=== PATIENT | female | born 1970 | race Caucasian/White ===

== ENCOUNTER 2025-01-31 19:49 | Emergency (ER) | payer OTHER, SELFPAY ==
--- NOTE | ~2025-01-31 | XR_ITS ---
X-rays right ankle Indication: Twisted ankle, pain Comparison: None Technique: 4 views right ankle Findings/Impression: 1. No fracture or dislocation right ankle. Reviewed, dictated and finalized at location R.
--- NOTE | 2025-01-31 19:54 | ED.LOWEXIN ---
HPI - Extremity Injury (Lower) General Chief Complaint: Extremity Injury, Lower Stated Complaint: foot pain Time Seen by Provider: 01/31/25 19:53 Source: patient Mode of arrival: ambulatory Limitations: no limitations History of Present Illness HPI Narrative: Patient is a 55-year-old female with a right ankle injury after raking hay this evening. Patient has pain on the lateral aspect of the right ankle. MD complaint: ankle injury (Right) Onset (ago): minute(s) (30) Type of Injury: inversion Place: home and street/outdoors Severity: moderate Severity scale (1-10): 6 Relieving factors: cold therapy and immobilization Exacerbating factors: weight bearing, movement and palpation Context: other (Patient was raking hay and twisted her right ankle) Associated symptoms: swelling, tingling and able to partially bear weight Other symptoms: none Treatments prior to arrival: cold therapy Related Data Allergies Allergy/AdvReac Type Severity Reaction Status Date / Time No Known Allergies Allergy Verified 01/31/25 19:53 Review of Systems Review of Systems: All systems reviewed & are unremarkable except as noted in HPI and below Constitutional: Constitutional: Reports no additional constitutional complaints Eyes: Eyes: Reports no additional eye complaints ENT: Reports system reviewed and no additional complaints, except as documented Cardiovascular: Cardiovascular: Reports no additional cardiovascular complaints Respiratory: Respiratory: Reports no additional respiratory complaints Gastrointestinal: Gastrointestinal: Reports no additional gastrointestinal complaints Genitourinary: Genitourinary: Reports no additional female genitourinary complaints Musculoskeletal: Musculoskeletal: Reports no additional musculoskeletal complaints Integumentary/Breasts: Skin/Breast: Reports system reviewed and no additional complaints, except as docu Neurologic: Reports system reviewed and no additional complaints, except as documented Psychiatric: Psychiatric: Reports no additional psychiatric complaints Endocrine: Endocrine: Reports no additional endocrine complaints Hematologic/Lymphatic: Hematologic/Lymphatic: Reports no additional hematologic/lymphatic complaints Allergic/Immunologic: Allergic/Immunologic: Reports no additional allergic/immunologic complaints Exam Const: General: healthy appearing Nutritional Appearance: well nourished Orientation/consciousness: patient oriented x3 HENMT: Head: normal to inspection Ears: external ears normal Face/Nose/Sinus: Normal external nose present Eyes: Conjunctivae: conjunctivae normal Pupils: Equal, round and reactive pupils present EOM: EOMs intact bilaterally Neck: Neck: normal visual inspection Chest: Chest palpation & inspection: normal inspection of the chest Resp: Effort & Inspection: normal respiratory effort and not labored Auscultation: clear to auscultation bilaterally and no crackles Cardio: Rate: regular rate Rhythm: regular rhythm Heart sounds: no murmurs GI: Inspection: non-distended GI Palp: Yes Soft to palpation and No Tenderness to palpation present (GI) Auscultation: normal bowel sounds : General: Yes bladder normal to palpation Back/Spine/Pelvis: Back: no CVA tenderness Skin: General skin exam: normal color Rashes: no rashes Wounds: no wounds Neuro: General: patient oriented x3, moves all extremities and no meningeal signs Extrem: General: abnormal to inspection Other: Swollen right ankle lateral aspect with tenderness to palpation and movement; distally neurovascularly intact Psych: Mental Status: mental status grossly normal Affect: normal affect Attitude: cooperative Course Vital Signs Vital signs: Vital Signs Temperature 36.8 C 01/31/25 19:56 Pulse Rate 100 01/31/25 19:56 Respiratory Rate 22 H 01/31/25 19:56 Blood Pressure 141/83 H 01/31/25 19:56 Pulse Oximetry 100 01/31/25 19:56 Oxygen Delivery Room Air 01/31/25 19:56 Temperature 36.8 C 01/31/25 19:56 Pulse Rate 100 01/31/25 19:56 Respiratory Rate 22 H 01/31/25 19:56 Blood Pressure 141/83 H 01/31/25 19:56 Pulse Oximetry 100 01/31/25 19:56 Oxygen Delivery Room Air 01/31/25 19:56 MDM - Extremity Injury (Lower) MDM Narrative Medical decision making narrative: Patient is a 55-year-old female with a right ankle injury prior to arrival. X-ray. Pain control. Imaging Data Attestation: I personally reviewed and interpreted this imaging study as follows: Radiologist's impression: Right ankle x-ray shows no acute process pending final reading Discharge Plan Discharge Clinical Impression: Right ankle sprain Qualifiers: Encounter type: initial encounter Involved ligament of ankle: other ligament Qualified Code(s): S93.491A - Sprain of other ligament of right ankle, initial encounter Patient Disposition: Home Condition: Stable Instructions: Ankle Sprain (DC) Patient Language: Puerto Rican Follow-up/Referrals: UNKNOWN,DOCTOR [Non-Staff] Time of Disposition: 20:07
--- OUTSIDE RECORDS SUMMARY | 2025-01-31 19:55 | XMS_ITS | Clinical Summary ---
Author Organization [facility] Address [address] [place] [address] Care Team Providers Care Supervisor Bonding Name Role Phone Jose Estevez MD Primary Care Provider Source Comments [facility],non-owned Affiliates and Associated Physician Practices is amultiple site organization consisting of ambulatory clinics and hospital sitesin [place], [place], [place] and [place]. This disclosure is being madepursuant to the Care Everywhere program and may not contain all information available regarding this patient. Last updated 18.[facility] Allergies Active Allergy Reactions Criticality Noted Date Comments Contrast-Gadolinium Agents For Mri Anaphylaxis High 03/22/2018 PT STATES THAT SHE HAD TO BE RUSHED TO THE EMERGENCY ROOM HER AIRWAY CLOSED OFF Medications * Be aware that medications may not be up to date on this document. Alwaysverify current medications with the patient. traZODone (DESYREL) 50 MG tablet Take 1 tablet by mouth nightly as needed 02/26/2018 Active ibuprofen (ADVIL) 200 MG tablet Take 200 mg by mouth every 6 hours as needed for Pain Active naproxen sodium (ALEVE) 220 MG tablet Take 220 mg by mouth 2 times daily Active Family History Medical History Relation Name Comments Diabetes - Type 2 Father Other Mother DYSTONIA Relation Name Status Comments Father Mother Social History Tobacco Use Types Packs/Day Years Used Date Smoking Tobacco: Never Smokeless Tobacco: Never Alcohol Use Standard Drinks/Week Comments No 0 (1 standard drink = 0.6 oz pur e alcohol) Comments Unknown Sex and Gender Information Value Date Recorded Sex Assigned at Not on file Legal Sex Female 6:14 AM [employer] Gender Identity Not on file Sexual Orientation Not on file Last Filed Vital Signs Vital Sign Reading Time Taken Comments Blood Pressure 129/82 05/22/2018 11:28 AM [employer] Pulse 76 05/22/2018 11:28 AM [employer] Temperature 36.4 C (97.6 F) 05/22/2018 11:28 AM [employer] Respiratory Rate 18 05/22/2018 11:28 AM [employer] Oxygen Saturation 100% 05/22/2018 11:28 AM [employer] Inhaled Oxygen Concentration - - Weight - - Height - - Body Mass Index - - Plan of Treatment Health Maintenance Due Date Last Done Comments COLOGUARD (AGES 45-75) - COL ON CA SCREENING 1969 COLON MONITORING 1969 COLONOSCOPY - COLON CA SCREENING 1969 CT COLONOGRAPHY - COLON CA SCREENING 1969 Colorectal Cancer Screening 1969 FIT - COLON CA SCREENING 1969 FLEX SIG - COLON CA SCREENING 1969 LIPID TESTING 1969 MAMMOGRAM 1969 HIV SCREENING 01/09/1984 HEPATITIS C SCREENING 01/04/1987 DTAP/TDAP/TD VACCINES (1 - Tdap) 01/09/1988 HEPATITIS B VACCINE (1 of 3 - 19+ 3-dose series) 01/09/1988 PNEUMOCOCCAL VACCINE 50+ (1 of 1 - PCV) 2019 ZOSTER VACCINE (1 of 2) 2019 DEPRESSION SCREENING 05/13/2024 COVID-19 VACCINE (1 - 2023-2 5 season) 2025 INFLUENZA VACCINE (#1) 2025 HIB VACCINE Aged Out No longer eligi ble based on patient's age to complete this topic HPV VACCINE Aged Out No longer eligi ble based on patient's age to complete this topic MENINGOCOCCAL (Group B) VACC INE SHARED DECISION-MAKING Aged Out No longer eligibl e based on patient's age to complete this topic MENINGOCOCCAL GROUPS A/C/Y/W VACCINE Aged Out No longer eligible b ased on patient's age to complete this topic Insurance [employer] Care Teams Supervisor Bonding Relationship Specialty Start Date End Date Jose Estevez MD PCP - General Internal Medicine 04/24/18
--- OUTSIDE RECORDS SUMMARY | 2025-01-31 19:55 | XMS_ITS | Clinical Summary ---
Author Organization [facility] Address [address] [place] [address] Care Team Providers Care Pin Machine Tender Name Role Phone Vickie Mendoza MD Unavailable John Arellano MD Unavailable [phone] Jose Vazquez MD Primary Care Provider [phone] Allergies Active Allergy Reactions Criticality Noted Date Comments Gadolinium-Containing Contrast Media Anaphylaxis High 03/27/2018 Medications multivitamin with minerals tablet Take 1 tablet by mouth daily Active traMADoL (ULTRAM) 50 mg tablet Take 1 tablet (50 mg total) by mouth every 8 (eight) hours as needed for pain 30 tablet 06/30/2024 Active gabapentin (NEURONTIN) 600 mg tabletIndicatio ns:Neuropathic Pain Take 1 tablet (600 mg total) by mouth 3 (three) times a day 90 tablet 5 08/24/2024 5 Active sertraline (ZOLOFT) 50 mg tabletIndicatio ns:Moderate recurrent major depression (HCC) Take 1 tablet (50 mg total) by mouth daily 30 tablet 5 12/23/2024 6 Active traZODone (DESYREL) 100 mg tablet Take 1 tablet (100 mg total) by mouth nightly as needed for sleep 100 tablet 12/23/2024 6 Active Active Problems Problem Noted Date Diagnosed Date Anxiety 06/23/2024 Bilateral hip pain 09/03/2023 Overview (12/01/2023): XR 08/2023 IMPRESSION: Mild bilateral hip osteoarthritis. Assessment & Plan (12/02/2023 1:02 PM CDT): Reviewed XR. Relatively mild changes noted. Consider IASI if LESI does not help. Assessment & Plan (09/03/2023 11:42 AM CDT): Bilatearl hip imaging ordered Cervical spondylosis with radiculopathy 04/08/20 Overview (04/08/2023): Cs MRI 04/2022 FINDINGS: CERVICAL AND THORACIC SPINE: No definite lesions within the cervical or thoracic cord The alignment of the cervical and thoracic spine is normal. Vertebral bodies demonstrate normal signal intensity on all sequences. The craniocervical junction is normal. Multilevel degenerative disc disease is noted. Posterior disc osteophyte complexes at C5-C6 and C6-C7 and disc bulges at T6-T7, T7-T8, T8-T9, and T12-L1 results in mild to moderate spinal canal stenosis. There is right renal cyst partly seen.. Normal signal voids are present in the vertebral arteries. IMPRESSION: No brain demyelinating cord lesions identified. Assessment & Plan (12/02/2023 1:05 PM CDT): Consider MARTÍN in the future for her RUE radicular sx. Notes 50/50 pain Cs vs Ls but wants to start in Ls given lower risk. Assessment & Plan (09/03/2023 11:42 AM CDT): Continue gabapentin. Declines interventional options at this time. Does not feel gabapentin needs to be increased. Assessment & Plan (06/10/2023 10:54 AM SOLAR SYSTEM DESIGNER): Increase gabapentin. Consider ALAN C7-T1 - declines at this time. Assessment & Plan (04/08/2023 1:25 PM SOLAR SYSTEM DESIGNER): Will trial PT and gabapentin titration. Discussed ALAN as well briefly. Reviewed prior MRI. Spinal stenosis of lumbar region with radiculopa thy 02/06/2023 Overview (03/16/2024): LESI L4-5 12/17/23 - Ls MRI 02/2023 FINDINGS: The alignment of the lumbar spine is normal. There is heterogeneous bone marrow signal intensity throughout the lumbar spine with a predominantly fatty pattern superimposed on otherwise normal-appearing bone marrow. There is degenerative endplate signal changes best seen as edema-like changes in the superior endplate of the L5 vertebral body. There are no compression fractures. The conus medullaris terminates at the level of L1-L2. The distal spinal cord signal intensity is normal. There is diffuse disc desiccation. There is disc height loss at L4-L5. There is an annular fissure at L4-L5. There is a renal cortical cyst in the right kidney. The remaining soft tissues of the abdomen and pelvis appear appropriate. The aorta is normal. L1-L2: Minimal disc bulge. There is no facet arthropathy. There is no neuroforaminal stenosis. There is no spinal canal stenosis. L2-L3: Minimal disc bulge. There is mild bilateral facet arthropathy. There is mild left neuroforaminal stenosis. There is no spinal canal stenosis L3-L4: Mild disc bulge. There is mild right greater than left facet arthropathy. There is mild bilateral neuroforaminal stenosis. There is no spinal canal stenosis L4-L5: Disc bulge with superimposed central disc extrusion which migrates cranially behind the L4 endplate. There is moderate bilateral facet arthropathy. There is moderate to severe right and moderate left neuroforaminal stenosis. There is mild spinal canal stenosis L5-S1: The disc is normal in configuration. There is no facet arthropathy. There is no neuroforaminal stenosis. There is no spinal canal stenosis IMPRESSION: Mild to moderate degenerative changes of the lumbar spine as described in detail above. This is worst at L4-L5 where there is moderate to severe right and moderate left foraminal stenosis. There is also mild spinal canal stenosis. Assessment & Plan (12/02/2023 11:23 AM CDT): Plan for LESI L4-5 in 2 weeks Assessment & Plan (09/10/2023 7:49 AM CDT): MRI LS spine 02/24/23: Moderate L4-5 central canal stenosis with moderate to severe bilateral neural foraminal stenosis. Current pain radiating down right buttock and right lateral thigh Recommended proceeding with lumbar steroid injections. Increase gabapentin to 600 mg 3 times a day If lumbar steroid injections ineffective, neurosurgical consultation recommended. Physical therapy not helpful. Assessment & Plan (02/07/2023 7:40 AM CDT): Low back pain radiating down her left buttock, left lateral leg to the ankle since October 2022. Physical therapy initiation MRI lumbosacral spine without contrast. Likely pain management referral after MRI performed. Lumbar steroid injections discussed. Superficial thrombophlebitis of left upper extre mity 10/21/2022 Assessment & Plan (10/31/2022 4:16 PM CDT): Continue Eliquis for 6 weeks at which time she can be switched to aspirin therapy Assessment & Plan (10/22/2022 4:45 PM CDT): eliquis started Vaginal spotting 10/21/2022 Assessment & Plan (10/22/2022 4:46 PM CDT): Note from Senior Games Technician appreciated Left arm pain 10/20/2022 Assessment & Plan (10/22/2022 4:44 PM CDT): Hepain stopped and eliquis started SBO (small bowel obstruction) 10/16/2022 Assessment & Plan (10/31/2022 4:17 PM CDT): Bowel obstruction has resolved. Patient reports that she is still having some lower abdominal pain but it is much better. Assessment & Plan (10/21/2022 10:40 AM CDT): Will go ahead and advance diet as tolerated. BMI 24.0-24.9, adult 10/01/2022 Assessment & Plan (08/18/2024 10:09 AM CDT): BMI Follow-up includes: nutrition counseling, exercise counseling, and education provided. Assessment & Plan (06/23/2024 2:26 PM SOLAR SYSTEM DESIGNER): BMI Follow-up includes: nutrition counseling, exercise counseling, and education provided. Assessment & Plan (10/01/2022 1:44 PM CDT): BMI Follow-up includes: nutrition counseling, exercise counseling and education provided. Moderate recurrent major depression 08/03/2022 Assessment & Plan (10/31/2022 4:17 PM CDT): We have discussed the fact that stress may indeed be playing a role in some of her symptoms which she is agreeing to. She recognizes that both with her aging parents as well as her own health issues stress levels are at all time high. Assessment & Plan (10/16/2022 5:19 PM CDT): Patient is on trazodone at bedtime. She was on duloxetine but stopped it because it was making her too sedate. Assessment & Plan (10/01/2022 2:14 PM CDT): Patient is going to be started on Cymbalta titrating to 60 mg nightly. Assessment & Plan (08/03/2022 6:45 AM CDT): Cymbalta 30 mg at night for 1 week then 60 mg at night. Risks discussed including nausea and drowsiness. Sore throat 08/02/2022 Assessment & Plan (08/02/2022 4:32 PM CDT): Rapid strep was negative a throat culture was sent to the lab Chest pain 08/02/2022 Assessment & Plan (08/02/2022 4:32 PM CDT): Pleurodynia most likely. This does not appear cardiac. Pleuritic chest pain 08/02/2022 Assessment & Plan (10/24/2022 2:30 PM CDT): At this time the patient was sent to the emergency room for further evaluation. I have spoken with the nurse in triage. Patient needs a stat CT scan of the chest with PE protocol. Assessment & Plan (08/02/2022 4:32 PM CDT): Patient will be placed on diclofenac for 1 week and will see if her symptoms improved. White matter disease 04/28/2022 Assessment & Plan (09/10/2023 7:46 AM CDT): Approximally for small/tiny scattered nonspecific white matter lesions. MRI brain February 2023 unchanged with no convincing central vein sign. MRI cervical/thoracic spinal cord normal 05/01/22 CSF normal including 0 oligoclonal bands 05/10/22 Extensive serologies normal Assessment & Plan (02/07/2023 7:39 AM CDT): MRI brain 02/15/22: Approximally 6 small/tiny nonspecific white matter lesions which are possibly related to demyelination. MRI cervical/thoracic spinal cord normal 05/01/22 CSF normal including 0 oligoclonal bands 05/10/22 Extensive serologies normal Repeat MRI scan of the brain with central vein sign protocol to assess for demyelination. Assessment & Plan (08/03/2022 6:54 AM CDT): MRI brain 02/15/22: Approximally 6 small/tiny nonspecific white matter lesions which are possibly related to demyelination. MRI cervical/thoracic spinal cord normal 05/01/22 CSF normal including 0 oligoclonal bands 05/10/22 Extensive serologies normal Repeat MRI scan of the brain when central vein sign available if available prior to February 2022. If not available, will proceed with MRI scan of the brain with contrast February 2022. Central vein sign discussed as a future option to assess for demyelination. Non-recurrent acute suppurative otitis media of left ear 03/26/2022 Assessment & Plan (03/26/2022 2:08 PM SOLAR SYSTEM DESIGNER): At this time the patient is going to be placed on Flonase Claritin D and Ceftin. Prescriptions have been sent to her pharmacy. She will also use Debrox or Cerumenex to remove the wax. Chronic cough 01/31/2022 Paresthesias 01/31/2022 Assessment & Plan (01/31/2022 5:07 PM CDT): Patient has burning paresthesias that occur in both upper and lower extremities. They last for several days to weeks. They are never completely gone. This is gotten progressively worse over the last 6 months. She also notes difficulty walking raising concerns over possible multiple sclerosis. Syncope 06/05/2021 Assessment & Plan (06/05/2021 5:42 PM SOLAR SYSTEM DESIGNER): Patient had onset of vertigo while driving. She walked in to [employer] and passed out losing consciousness. When she originally woke up she was somewhat dazed. It took a while to get back to normal. Left cavernous carotid aneurysm 06/05/2021 Assessment & Plan (06/05/2021 5:43 PM SOLAR SYSTEM DESIGNER): Patient had a questionable cavernous carotid aneurysm. At this time because of a dye allergy to gadolinium a CT angiogram will be obtained. It is possible that this was artifact. Screening breast examination 10/17/2019 Assessment & Plan (10/17/2019 11:59 AM CDT): A mammogram was ordered Routine general medical exam ination at a [facility] facility 10/14/2019 Assessment & Plan (11/23/2020 11:24 AM CDT): Comprehensive laboratory studies will be obtained. The patient was instructed to follow a prudent diet and exercise program. We have reviewed all medications and where appropriate 90 day refills were given. A heart healthy diet was provided. Assessment & Plan (10/17/2019 11:59 AM CDT): Comprehensive laboratory studies will be obtained. The patient was instructed to follow a prudent diet and exercise program. We have reviewed all medications and where appropriate 90 day refills were given. A heart healthy diet was provided. Bilateral leg edema 10/14/2019 Assessment & Plan (10/17/2019 11:59 AM CDT): A urinalysis will be obtained to rule out proteinuria Bilateral plantar fasciitis 06/09/2019 Assessment & Plan (06/09/2019 1:22 PM SOLAR SYSTEM DESIGNER): Patient given a handout on plantar fasciitis. She should obtain heel cups. She should wear appropriate footwear. She may ice the bottoms of her feet. Stretching exercises given to patient. She may use Celebrex 200 mg daily with food for 2 weeks only. If no improvement she should either see podiatry Orthopedics for an injection. Patient verbalizes understanding. Facial pain, acute 12/16/2018 Assessment & Plan (12/16/2018 3:26 PM CDT): Resolved. May have been muscle sprain or spasm. She does appear to have eustachian tube dysfunction. Warm moist heat to face t.i.d. today. Kidney stone on right side 10/21/2018 Overview (10/21/2018): Added automatically from request for surgery [id number] Anastomotic ulcer 08/12/2018 Assessment & Plan (08/13/2018 9:32 AM CDT): Flex sig yesterday shows non bleeding ulcer at the anastomotic ilio-sigmoid site. GI following recommends daily Canasa enema Likely cost prohibitive will check Assessment & Plan (08/12/2018 9:18 AM CDT): Flex sig yesterday shows non bleeding ulcer at the anastomotic ilio-sigmoid site. GI following recommends daily Canasa enema Right lower quadrant abdominal pain 08/06/2018 Overview (08/11/2018): Added automatically from request for surgery [id number] Assessment & Plan (08/15/2018 3:56 PM CDT): RLQ pain sudden onset and complete eval at [facility] I have reviewed all. Today c d still operator RLQ but no eritoneal signs and bs normal. She is able to tolerate reg diet. Long discussion and review of labs,xrays and notes. Will continue pain meds and return in 4 days to reeval. Allergy to intravenous contrast media 03/21/2018 Diarrhea 11/18/2017 Assessment & Plan (10/22/2022 4:44 PM CDT): No further issue with diarrhea. Has not had BM for 3 days Onychomycosis 07/01/2017 Assessment & Plan (08/09/2018 12:31 PM CDT): Hold itraconazole Assessment & Plan (08/08/2018 10:43 AM CDT): Hold itraconazole Assessment & Plan (08/07/2018 3:54 AM CDT): Hold itraconazole Assessment & Plan (07/01/2017 12:55 PM SOLAR SYSTEM DESIGNER): rx meds sent to pharmacy education risk benefits side affect and time Encourage to get rid of shoes do not use shoes without socks Soak in epsom salt and warm water two times a week Primary insomnia 05/29/2017 Assessment & Plan (09/10/2023 7:50 AM CDT): Partially related to lumbosacral radiculopathy pain. Trazodone 100 mg at night. Assessment & Plan (02/07/2023 7:54 AM CDT): Trazodone 100 mg as needed Temazepam equally effective Assessment & Plan (08/03/2022 6:44 AM CDT): Trazodone 100 mg helps her fall asleep, but not stay asleep. Sleeping 3-4 hours at night. Temazepam 15-30 mg at night initiation. Assessment & Plan (06/02/2017 3:09 PM SOLAR SYSTEM DESIGNER): rx given Psoriasis 03/30/2014 Overview (08/17/2016): Psoriasis Assessment & Plan (09/10/2017 4:04 PM CDT): See # 1 Calculus of kidney and ureter 03/30/2014 Overview (08/17/2016): Renal and ureteral stones Mass of breast 05/20/2013 Vitamin D deficiency 08/07/2012 Overview (08/15/2016): Unspecified vitamin D deficiency Assessment & Plan (10/17/2019 12:00 PM CDT): A vitamin-D level will be obtained. Patient will continue supplementing Open wound of toe 08/07/2012 Overview (08/16/2016): Open wound of toe(s), without mention of complicat Abdominal pain 04/23/2012 Overview (08/08/2018): Assessment & Plan (06/05/2021 5:43 PM SOLAR SYSTEM DESIGNER): Patient has had recurrent abdominal pain. She has been evaluated by GI. At this time laboratory studies including an amylase and lipase will be obtained. Assessment & Plan (08/19/2018 4:00 PM CDT): Improved but still very tender RLQ and moves as if pain increases with jarring and motion. No fever, no vomiting and moving bowels and eating ok. PE c d still operator but no peritoneal signs. Continue waitng for better. Consider Dr Paula Mendoza consult--?autoimmune? 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 CRS and GI following. No new recs. 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 CRS and GI following. No new recs. No abx as no evidence of infection Continue with pain control, add gabapentin Continue scheduled NSAIDS and oral oxycodone Wean from IV dilaudid Monitor for signs of infection of abscess Assessment & Plan (08/11/2018 10:56 AM CDT): Etiology remains unclear but Non-contrast CT scan and transvaginal US unremarkable. Non-obstructing right kidney stone seen in lower pole of kidney, felt unlikely to be the cause of her pain and unchanged in position on repeat KUB Flex sig shows anastomotic non bleeding ulcer with mild stenosis May consider contrasted CT scan to better delineate location of pain Transition pain meds to oral and dose reduce IV dilaudid Assessment & Plan (08/10/2018 12:27 PM CDT): Etiology remains unclear but some improvement today Non-contrast CT scan and transvaginal US unremarkable. Non-obstructing right kidney stone seen in lower pole of kidney, felt unlikely to be the cause of her pain and unchanged in position on repeat KUB Appreciate surgery recs and GI recs, per surgery some e/o omental inflammation on CT and recommended Toradol Discussed with GI fellow today, plan for flex sig in the am, NPO after midnight and tap water enemas ordered Cont IV Dilaudid prn for pain and IVF. Clear liquid diet then NPO after midnight Assessment & Plan (08/09/2018 12:31 PM CDT): Etiology remains unclear with no improvement today Non-contrast CT scan and transvaginal US unremarkable. Non-obstructing right kidney stone seen in lower pole of kidney, felt unlikely to be the cause of her pain and unchanged in position on repeat KUB Appreciate surgery recs, no e/o obstruction on imaging thus far recommend lower endoscopy or Hypaque enema Repeat enema today, plan for lower endoscopy Saturday per GI Cont IV Dilaudid prn for pain and IVF. Clear liquid diet. Assessment & Plan (08/08/2018 10:42 AM CDT): Etiology remains unclear No fever. Some stool output with mag citrate but pain remains CT scan and transvaginal US unremarkable. GI consulted still with concern pain may be related to right renal stone given now with flank pain component Will continue with bowel regimen and add enema for evacuation Abdominal US to evaluate gll bladder stone but no other evidence of obtstruction with normal LFT Obs series to evaluate for renal stone changes and bowel dilation GI following, if all other work up remains unremarkable will consider C scope Assessment & Plan (08/07/2018 3:54 AM CDT): Non contrast CT noted nonobstructive right renal stone. Urology consulted in ED and did not feel this was cause of pain. No other clear cause of pain identified. Pelvic ultrasound also reportedly without acute abnormalities. Has history of similar presentations and chart history of chronic abdominal and pelvic pain. Differential includes IBS, medication side effect (itraconazole), functional abdominal pain. Hold itraconazole Pain control as needed. Will give one dose 0.5 mg IV dilaudid now, and order IV toradol prn Labs consistent with starvation ketosis. Will give D5 NS at 125 for 1 liter. Clear liquid diet and advance as tolerated Consider GI consult Drug indicated 01/31/2012 Overview (08/17/2016): LONG-TERM USE MEDS NEC Multiple joint pain 10/24/2011 Overview (08/17/2016): Joint pain Assessment & Plan (09/06/2018 3:55 PM CDT): Since this flare-up the patient has had multiple joint complaints. At this time she is avoiding all nonsteroidal anti-inflammatories. She will use of oxycodone and Tylenol as needed. Assessment & Plan (09/10/2017 4:04 PM CDT): Discussed results of recent work up w/ patient. Serologies were negative for evidence of autoimmune disease and/or inflammatory process. Her xrays revealed no erosive changes. She denies pain and/or morning stiffness in her joints. She continues to have fatigue and myalgias. She has a pruritic patch along her posterior hairline, highly suspicious for psoriasis. No evidence of synovitis on exam. Given clinical and diagnostic picture, suspect seronegative Spa vs. RA. Will continue to monitor every 6 mo, sooner if needed. Gave her samples of Vivlodex 10 mg. She will call us if she would like us to send in a rx to the speciality pharmacy. Pt seen w/ Dr. Mendoaz Assessment & Plan (08/22/2017 2:23 PM CDT): 47 yof w/ complaints of myalgias, joint pain, back pain, fatigue, and trouble sleeping. She also admits to shortness of breath and pain/stiffness in her hands. She also has multiple hypopigmented spots throughout upper arms and neckline. Will evaluate for underling autoimmune process w/ blood work (AVISE) and xrays She will follow up in 2 weeks, sooner if needed. Pt seen w/ Nancy Calderon PA-C Varicose veins of lower extremity 08/16/2011 Overview (08/17/2016): Varicose vein of leg Disorder of joint 08/25/2009 Overview (08/16/2016): ARTHROPATHY NOS-UNSPEC Resolved Problems Problem Noted Date Diagnosed Date Resolved Date Lumbar disc disease with radiculopathy 04/08/2023 09/10/2023 Overview (04/08/2023): Ls MRI 02/2023 FINDINGS: The alignment of the lumbar spine is normal. There is heterogeneous bone marrow signal intensity throughout the lumbar spine with a predominantly fatty pattern superimposed on otherwise normal-appearing bone marrow. There is degenerative endplate signal changes best seen as edema-like changes in the superior endplate of the L5 vertebral body. There are no compression fractures. The conus medullaris terminates at the level of L1-L2. The distal spinal cord signal intensity is normal. There is diffuse disc desiccation. There is disc height loss at L4-L5. There is an annular fissure at L4-L5. There is a renal cortical cyst in the right kidney. The remaining soft tissues of the abdomen and pelvis appear appropriate. The aorta is normal. L1-L2: Minimal disc bulge. There is no facet arthropathy. There is no neuroforaminal stenosis. There is no spinal canal stenosis. L2-L3: Minimal disc bulge. There is mild bilateral facet arthropathy. There is mild left neuroforaminal stenosis. There is no spinal canal stenosis L3-L4: Mild disc bulge. There is mild right greater than left facet arthropathy. There is mild bilateral neuroforaminal stenosis. There is no spinal canal stenosis L4-L5: Disc bulge with superimposed central disc extrusion which migrates cranially behind the L4 endplate. There is moderate bilateral facet arthropathy. There is moderate to severe right and moderate left neuroforaminal stenosis. There is mild spinal canal stenosis L5-S1: The disc is normal in configuration. There is no facet arthropathy. There is no neuroforaminal stenosis. There is no spinal canal stenosis IMPRESSION: Mild to moderate degenerative changes of the lumbar spine as described in detail above. This is worst at L4-L5 where there is moderate to severe right and moderate left foraminal stenosis. There is also mild spinal canal stenosis. Assessment & Plan (09/03/2023 11:42 AM CDT): Continue gabapentin. Declines interventional options at this time. Does not feel gabapentin needs to be increased. Assessment & Plan (06/10/2023 10:54 AM SOLAR SYSTEM DESIGNER): Increase gabapentin. Consider LESI L4-5 - declines at this time. Assessment & Plan (04/08/2023 1:25 PM SOLAR SYSTEM DESIGNER): Reviewed MRI. Discussed LESI. She would like to trial gabapentin first. Gait disorder 01/31/2022 02/07/2023 Assessment & Plan (01/31/2022 5:07 PM CDT): Patient has difficulty raising her legs at times to walk. She stumbles and feels unsteady. Workup for MS is in place Paresthesia and pain of both upper extremities 01/31/2022 02/07/2023 Assessment & Plan (10/01/2022 2:14 PM CDT): Symptoms are persistent and perhaps worsening. We are still missing the diagnosis. Assessment & Plan (01/31/2022 5:07 PM CDT): Workup for MS is in progress Fatigue 12/16/2018 02/07/2023 Assessment & Plan (01/31/2022 5:08 PM CDT): Patient has severe fatigue and malaise. Labs including an iron profile and B12 as well as a thyroid will be obtained today. Assessment & Plan (12/16/2018 3:39 PM CDT): We discussed that she wakes up fatigued which can often be a sign of stressed or depressed mood. She will consider these possibilities. Reviewed lab testing ordered by Rheumatology. No evidence for inflammatory process causing fatigue. Check CBC, TSH, CMP. Ischemic colitis 09/06/2018 07/27/2022 Assessment & Plan (10/17/2019 11:59 AM CDT): I have suggested that the patient take an aspirin daily Assessment & Plan (09/06/2018 3:54 PM CDT): I have reviewed the results from the hospital. Overall she is doing well. A PT and PTT will be obtained. A refill on pain medication was given today. Hypokalemia 08/10/2018 12/16/2018 Assessment & Plan (08/13/2018 9:32 AM CDT): K replaced PO now normalized Assessment & Plan (08/12/2018 9:13 AM CDT): Repeat bmp this am Assessment & Plan (08/11/2018 10:57 AM CDT): Resolved with IV KCL Assessment & Plan (08/10/2018 12:26 PM CDT): Replete IV, check BMP in the am Nausea 08/07/2018 12/16/2018 Assessment & Plan (08/13/2018 9:32 AM CDT): Prn antiemetics ADAT per GI recs Assessment & Plan (08/12/2018 9:07 AM CDT): Prn antiemetics ADAT per GI recs Assessment & Plan (08/11/2018 10:56 AM CDT): Prn antiemetics ADAT per GI recs Assessment & Plan (08/10/2018 12:28 PM CDT): Prn antiemetics Clear liquid diet, NPO after midnight for scope Assessment & Plan (08/09/2018 12:31 PM CDT): Prn antiemetics Clear liquid diet, will not advance given severe pain Assessment & Plan (08/08/2018 10:42 AM CDT): Prn antiemetics Clear liquid diet and advance as tolerated Assessment & Plan (08/07/2018 3:54 AM CDT): Prn antiemetics Clear liquid diet and advance as tolerated Dehydration, severe 11/18/2017 12/17/19 19 Routine medical exam 10/16/2017 025 Assessment & Plan (10/16/2017 10:12 PM CDT): Comprehensive laboratory studies will be obtained. The patient will continue a prudent diet and exercise program. Other headache syndrome 09/10/201701/12 Assessment & Plan (09/10/2017 4:12 PM CDT): Pt reports history of headaches. Recent onset of tingling in posterior scalp w/ associated subtle vision changes. Denies fevers, AMS, sleep disturbance, and associated n/v. Will refer to Dr. Val Zamora for neurology eval. Myalgia 05/23/2017 12/16/2018 Assessment & Plan (09/10/2017 4:06 PM CDT): Work up negative for evidence of autoimmune etiology Assessment & Plan (08/22/2017 2:17 PM CDT): See # 1 Assessment & Plan (06/02/2017 3:10 PM SOLAR SYSTEM DESIGNER): She describes muscle pain which seems out of proportion to the influenza virus. A CPK and aldolase will be obtained. Assessment & Plan (05/23/2017 12:50 PM SOLAR SYSTEM DESIGNER): Negative flu swab but clinically evident cxray neg pneumonia lab pending She was given 1 liter NS and 60mg toradol for her discomfort Influenza 05/22/2017 12/16/2018 Assessment & Plan (06/02/2017 3:09 PM SOLAR SYSTEM DESIGNER): I, Jose Estevez MD have personally reviewed pertinent Hospital/ER data including [employer] and Care Everywhere if available. This patient's discharge medication list has been reviewed and reconciled with her medication list in the office chart and has also been reviewed with patient and/or caregiver. I have noted any changes. Assessment & Plan (05/23/2017 12:49 PM SOLAR SYSTEM DESIGNER): Negative swab but clinically evident Ns 1liter ivf pt monitored for over 2 1/2 hours left at 1230 Pt given toradol 60mg im one and monitored for over an hour has no reaction stay well hydrated rest is as important as medication otc analgesic per label rx sent to pharmacy education for risk benefits side affects call for any change such po intolerance nvd cp sob wheezing Dehydration, moderate 05/22/20172018 Assessment & Plan (05/23/2017 12:48 PM SOLAR SYSTEM DESIGNER): ivf times 1 liter normal saline dc at 1230 Monitored for two and half hours Encouraged to stay hydrated setting timer in home to drink or eat ice every hour See orders BMI 23.0-23.9, adult 05/22/2017 025 Overview (10/14/2019): BMI Follow-up includes: nutrition counseling, exercise counseling and education provided. Assessment & Plan (11/23/2020 10:45 AM CDT): BMI Follow-up includes: nutrition counseling, exercise counseling and education provided. Assessment & Plan (06/09/2019 12:53 PM SOLAR SYSTEM DESIGNER): BMI Follow-up includes: nutrition counseling, exercise counseling and education provided. Assessment & Plan (12/16/2018 11:27 AM CDT): BMI Follow-up includes: nutrition counseling, exercise counseling and education provided. Assessment & Plan (08/27/2018 3:30 PM CDT): BMI Follow-up includes: nutrition counseling, exercise counseling and education provided. Assessment & Plan (10/09/2017 2:23 PM CDT): BMI Follow-up includes: nutrition counseling, exercise counseling and education provided. Assessment & Plan (07/01/2017 12:55 PM SOLAR SYSTEM DESIGNER): BMI Follow-up includes: nutrition counseling, exercise counseling and education provided. Assessment & Plan (05/22/2017 10:18 AM SOLAR SYSTEM DESIGNER): BMI Follow-up includes: nutrition counseling, exercise counseling and education provided. Syncope and collapse 04/06/2015 018 Overview (08/17/2016): Syncope and collapse Pain of lower extremity 08/16/2011 08/0 10/2018 Overview (08/16/2016): Leg pain Encounters Date Type Department Care Team Description 01/26/2025 Telephone [facility] [address] [facility] [address] [place] [address] Jose Vazquez MD Appointment 01/21/2025 Telephone [facility] [address] [facility] [address] [place] [address] Jose Vazquez MD Appointment 01/20/2025 9:55 AM CDT Office Visit [facility] [address] [facility] [address] [place] [id number] Tasneem Amado MD Well woman exam (Primary Dx) 01/18/2025 Results Follow-Up [facility] [address] [facility] [address] [place] [id number] Erasto Bose MD MRI Cervical Spine WO Contrast, MRI Brain WO Contrast 01/15/2025 1:57 PM CDT - 01/15/2025 11:59 PM CDT Hospital Encounter [facility] [address] [place] [address] White matter disease Discharge Disposition: Discharge to home or self care 01/15/2025 1:57 PM CDT - 01/15/2025 11:59 PM CDT Hospital Encounter [facility] [address] [place] [address] White matter disease Discharge Disposition: Discharge to home or self care 01/13/2025 10:00 AM CDT Social Work [facility] [address] [facility] [address] [place] [address] Brigida Mcdowell LCSW Anxiety (Primary Dx); Marital conflict involving estrangement 12/30/2024 11:00 AM CDT Social Work [facility] [address] [facility] [address] [place] [address] Brigida Mcdowell LCSW Anxiety (Primary Dx); Adjustment disorder with depressed mood 12/23/2024 12:45 PM CDT Office Visit [facility] [address] [facility] [address] [place] [phone] Erasto Bose MD White matter disease (Primary Dx); Spinal stenosis of lumbar region with radiculopathy; Paresthesias; Moderate recurrent major depression (HCC); Primary insomnia 12/10/2024 10:24 AM CDT - 12/10/2024 11:59 PM CDT Hospital Encounter [facility] [address] [facility] [address] [place] [address] Screening mammogram, encounter for Discharge Disposition: Discharge to home or self care 11/16/2024 Orders Only [facility] [address] [place] [address] [address] [place] [address] Tasneem Amado MD Menopause (Primary Dx) 11/16/2024 Telephone [facility] [address] [place] [address] [address] [place] [address] Tasneem Amado MD Dexa from Last 3 Months Immunizations Immunization Administration Dates Next Due Influenza, Unspecified 08/19/2023(Deferr ed: Patient Refused),06/09/2019(Deferred: Patient Refused),02/10/2019(Deferred: Patient Refused),02/10/2019(Deferred: Patient decision),02/10/2018(Deferred: Patient Refused),02/10/2018(Deferred: Patient decision) Pfizer SARS-CoV-2 Monovalent Vaccination (12+ Yrs) PURPLE 09/08/2020,08/17/2020 Tdap 09/01/2012,09/01/2012 Surgical History Surgery Date Site/Laterality Comments HYSTERECTOMY Hysterectomy ovaries intact OTHER SURGICAL HISTORY 05/13/2004 - 05/12/2005 GI abnormality -type unknown.: colon resection OTHER SURGICAL HISTORY Renal calculi: lithotripsy COLECTOMY 05/13/2004 - 05/12/2005 Colectomy OTHER SURGICAL HISTORY partial hysterectomy - endometriosis COLECTOMY Colectomy COLECTOMY MANNY 1997 LUMBAR PUNCTURE WO INJECTION, DIAGNOSTIC 05/10/2022 N/A PORT PLACEMENT CHEST >5 YEARS 05/22/2018 N/A Medical History Medical History Date Comments Hx Other Medical 2004 GI abnormality -type unknown.; Outcome: free of disease Hx Other Medical Renal calculi Endometritis Endometriosis Calculus of kidney Nephrolithias is Hx Other Medical Headache, migra ine Hx Other Medical DVT when pregna nt; Comments: [facility] 03/30/2014 - Ulcerative colitis Ischemic colitis 09/06/2018 Family History Medical History Relation Name Comments Arthritis Father Sabino Jackson Diabetes Father Sabino Jackson Diabetes mellit us; Hypertension Father Sabino Jackson Hypertension; Macular degeneration Maternal Grandfather Other Mother Dystonia; /Aliv e and well; Lupus Mother's Sister 2 Systemic l upus erythematosus; Other Other Family history of Descent: Unknown; Diabetes Paternal Grandmother Shanique Jackson Relation Name Status Comments Father Sabino Jackson Maternal Grandfather Mother Alive Mother's Sister 1 Alive Mother's Sister 2 Other Paternal Grandmother Shanique Jackson Social History Tobacco Use Types Packs/Day Years Used Date Smoking Tobacco: Never Smokeless Tobacco: Never Tobacco Cessation:Counseling Given: Not Answered Alcohol Use Standard Drinks/Week Comments No 0 (1 standard drink = 0.6 oz pur e alcohol) Social Connection and Isolation Panel Answer Date Recorded In a typical week, how many times do you talk on the phone with family, friends, or neighbors? More than three times a week 10/19/2022 How often do you get togethe r with friends or relatives? More than three times a week 10/19/2022 How often do you attend chur ch or cheondoism services? More than 4 times per year 10/19/2022 Do you belong to any clubs o r organizations such as tenriism groups, unions, fraternal or athletic groups, or school groups? No 10/19/2022 How often do you attend meet ings of the clubs or organizations you belong to? Never 10/19/2022 Are you , , di vorced, , never , or living with a partner? 10/19/2022 Overall Financial Resource Strain (CARDIA) Answe r Date Recorded How hard is it for you to pa y for the very basics like food, housing, medical care, and heating? Not hard at all 10/19/2022 PHQ-2 Answer Date Recorded PHQ-2 Total Score (If total score is 3 or more points, staff should administer the PHQ-9) 0 08/18/2024 Hunger Vital Sign Answer Date Recorded Within the past 12 months, y ou worried that your food would run out before you got the money to buy more. Never true 10/20/19 23 Within the past 12 months, t he food you bought just didn't last and you didn't have money to get more. Never true 10/19/2022 PRAPARE - Transportation Answer Date Re corded In the past 12 months, has l ack of transportation kept you from medical appointments or from getting medications? No 01/2023 In the past 12 months, has l ack of transportation kept you from meetings, work, or from getting things needed for daily living? No 10/19/2022 Housing Stability Vital Sign Answer Rudi e Recorded In the last 12 months, was t here a time when you were not able to pay the mortgage or rent on time? No 10/19/2022 In the last 12 months, how many places have you lived? 1 10/19/2022 In the last 12 months, was t here a time when you did not have a steady place to sleep or slept in a group home (including now)? No 10/19/2022 Personal Safety Answer Date Recorded Have you ever been in or are you currently in a harmful physical or emotional relationship or is someone making you feel afraid or unsafe? 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 file Not on file Not on file Obstetrics History Para Term AB IAB SAB Ectopic Multiple Livin g Live Births 2 2 2 2 2 Date Outcome GA Total Labor Labor/2nd/3rd Weight Sex Type Anes PTL Shanti A1 A5 Name Clin 08/16 Term 38w 0d 3.941 kg (8 lb 11 oz) F Vaginal Living 01/31 Term 37w 0d 3.459 kg (7 lb 10 oz) M Vaginal Living Comments No h/o abnormal pap No h/o STIs Last Filed Vital Signs Vital Sign Reading Time Taken Comments Blood Pressure 106/74 01/20/2025 10:04 AM CDT Pulse 65 12/23/2024 12:42 PM CDT Temperature 36.6 C (97.8 F) 07/27/2024 4:08 PM CDT Respiratory Rate 16 07/27/2024 4:08 PM CDT Oxygen Saturation 97% 12/23/2024 12:42 PM CDT Inhaled Oxygen Concentration - - Weight 68 kg (150 lb) 01/20/2025 10:04 AM CDT Height 167.6 cm (5' 5.98) 12/23/2024 12:42 PM C DT Body Mass Index 24.23 12/23/2024 12:42 PM CDT Plan of Treatment Health Maintenance Due Date Last Done Comments Hepatitis B Screening 1987 Zoster Vaccine (1 of 2) 2019 DTaP/Tdap/Td Vaccine (3 - Td or Tdap) 09/01/2022 09/01/2012, 09/01/2012 Covid-19 Vaccine (4 - 2024- season) 2025 05/15/2021, 09/08/2020, 08/17/2020 Influenza Vaccine (#1) 2025 Depression Screening 08/18/2025 08/18/2024, 06/23/2024, 07/27/2022, Additional history exists Breast Cancer Screening-Mammogram 12/10/2025 12/10/2024, 12/09/2023, 12/25/2022, Additional history exists Regular Well Visit/Exam 18-64 01/20/2026 01/20/2025, 11/23/2020, 10/14/2019, Additional history exists Colon Cancer Screening-Colonoscopy 08/27/2026 08/27/2016 Hepatitis C Screening Completed 11/18/2017 Colon Cancer Screening-CT Colonography Discontinued 08/11/2018, 08/27/2016 Colon Cancer Screening-DNA Stool Discontinued 08/11/2018, 08/27/2016 Colon Cancer Screening-FIT Discontinued 08/11/2018, Colon Cancer Screening-Sigmoidoscopy Discontinued 08/11/2018, 08/27/2016 Pneumococcal vaccine <65 Aged Out No longer eligible based on patient's age to complete this topic Goals Goal Patient Goal Type Associated Problems Recent Progress Patient-Stated? Author CCM Chronic Pain Care Plan Chronic Care Management On track(2023 1:01 PM CDT) Yomaira Lozada, RN Note: Problem: Chronic Pain Goals: 1. Minimize further functional decline 2. Maximize quality of life 3. Control pain Strategies: - Activity/exercise program recommendation - Conservative stepwise pain medicine strategy with multi-disciplinary approach - Recommend healthy lifestyle strategies and compensatory methods as needed Procedures Procedure Name Priority Date/Time Associated Diagnosis Comments MRI CERVICAL SPINE WO CONTRAST Schedule Routine, Read Routine (OP Routine) 01/15/2025 3:13 PM CDT White matter disease MRI BRAIN WO CONTRAST Schedule Routine, Read Routine (OP Routine) 01/15/2025 3:13 PM CDT White matter disease SCREENING MAMMOGRAM BILATERAL W JOSHUA Schedule Routine, Read Routine (OP Routine) 12/10/2024 10:49 AM CDT Screening mammogram, encounter for FLEXIBLE SIGMOIDOSCOPY 08/11/2018 9:56 AM CDT HEPATITIS PANEL, ACUTE STAT 11/18/2017 6:54 PM CDT COLONOSCOPY REPORT 08/27/2016 from Last 3 Months or Most Recently Relevant to Health Maintenance Results * MRI Cervical Spine WO Contrast (01/15/2025 3:13 PM CDT) Anatomical Region Laterality Modality Spine N/A Magnetic Resonan ce 01/15/2025 4:08 PM CDT Impressions 01/15/2025 4:35 PM CDT 1. Unchanged minor nonspecific T2/FLAIR hyperintensities in periventricular white matter without definite central vein sign. 2. Degenerative changes in the cervical spine with right paracentral bulge at C6-C7 level impinging the right C7 nerve root in the lateral recess and causing severe right neural foramen narrowing. Findings have not changed significantly when compared with the prior MRI. Dictated by: Lidia Taylor M.D. The radiology attending physician has personally reviewed this study, and had reviewed and/or edited this written report and agrees with it. Electronically signed by: Cathleen Moser M.D. Narrative 01/15/2025 4:35 PM CDT EXAMINATION: 1. Magnetic resonance imaging (MRI) of the brain and brainstem without contrast 2. Magnetic resonance imaging (MRI) of the cervical spine without contrast HISTORY: Follow-up of white matter lesions. TECHNIQUE: Multiplanar multi-weighted MRI of the brain and brainstem was performed without intravenous contrast using the general brain protocol. Multiplanar multi-weighted MRI of the cervical spine was performed without intravenous contrast using the standard protocol. COMPARISON: MRI brain 02/25/2023, MRI of the cervical spine 05/01/2022 FINDINGS: BRAIN: There are 4 tiny foci of FLAIR hyperintensity in right frontal, left parietal, left cingulate gyrus, right temporal white matter without interval change. Within the limitation of the small size, no central vein sign is identified. The scalp and calvarium are normal. The superior sagittal sinus demonstrates normal venous flow. The corpus callosum is normal in shape and signal intensity. The posterior fossa is unremarkable. The pituitary and sella are normal. The brainstem and craniocervical junction are unremarkable. Diffusion weighted images reveal no hyperintensities to suggest acute cerebral infarction. The susceptibility weighted sequences reveal no evidence of acute or chronic hemorrhage. The ventricles are normal in size and position without evidence of hydrocephalus. Maxillary sinus is hypoplastic with fluid opacity. The visualized portions of the mastoids are unremarkable. The orbits appear normal. Normal flow voids are demonstrated in the carotid arteries and basilar artery. CERVICAL SPINE: The alignment of the cervical spine is normal. Vertebral bodies demonstrate normal signal intensity on all sequences. No acute fracture is identified. The craniocervical junction is normal. The visualized portions of the skull base and the posterior fossa are normal. The spinal cord demonstrates normal signal intensity on all sequences. Intervertebral disks have normal height and signal intensity. There are no annular fissures identified. No soft tissue abnormality is identified. Normal signal voids are present in the vertebral arteries. C2-C3: The disk is normal in configuration. There is no facet arthropathy. There is no uncovertebral joint disease. There is no neuroforaminal stenosis. There is no spinal canal stenosis. C3-C4: Mild circumferential disc bulge. There is mild bilateral facet arthropathy. There is no uncovertebral joint disease. There is no neuroforaminal stenosis. There is no spinal canal stenosis. C4-C5: Circumferential disc bulge with posterior disc osteophyte complex There is bilateral mild facet arthropathy. There is bilateral mild uncovertebral joint disease. There is no neuroforaminal stenosis. There is mild spinal canal stenosis. C5-C6: Posterior disc osteophyte complex indenting the spinal cord . There is bilateral facet arthropathy. There is bilateral uncovertebral joint disease. There is mild bilateral neuroforaminal stenosis. There is moderate spinal canal stenosis. C6-C7: Right paracentral bulge impinging the right C7 nerve root in the lateral recess. There is mild bilateral facet arthropathy. There is bilateral uncovertebral joint disease. There is severe right neuroforaminal stenosis. There is moderate spinal canal stenosis. C7-T1: The disk is normal in configuration. There is no facet arthropathy. There is no uncovertebral joint disease. There is no neuroforaminal stenosis. There is no spinal canal stenosis. Procedure Note Cathleen Moser MD - 01/15/2025 EXAMINATION: 1. Magnetic resonance imaging (MRI) of the brain and brainstem without contrast 2. Magnetic resonance imaging (MRI) of the cervical spine without contrast HISTORY: Follow-up of white matter lesions. TECHNIQUE: Multiplanar multi-weighted MRI of the brain and brainstem was performed without intravenous contrast using the general brain protocol. Multiplanar multi-weighted MRI of the cervical spine was performed without intravenous contrast using the standard protocol. COMPARISON: MRI brain 02/25/2023, MRI of the cervical spine 05/01/2022 FINDINGS: BRAIN: There are 4 tiny foci of FLAIR hyperintensity in right frontal, left parietal, left cingulate gyrus, right temporal white matter without interval change. Within the limitation of the small size, no central vein sign is identified. The scalp and calvarium are normal. The superior sagittal sinus demonstrates normal venous flow. The corpus callosum is normal in shape and signal intensity. The posterior fossa is unremarkable. The pituitary and sella are normal. The brainstem and craniocervical junction are unremarkable. Diffusion weighted images reveal no hyperintensities to suggest acute cerebral infarction. The susceptibility weighted sequences reveal no evidence of acute or chronic hemorrhage. The ventricles are normal in size and position without evidence of hydrocephalus. Maxillary sinus is hypoplastic with fluid opacity. The visualized portions of the mastoids are unremarkable. The orbits appear normal. Normal flow voids are demonstrated in the carotid arteries and basilar artery. CERVICAL SPINE: The alignment of the cervical spine is normal. Vertebral bodies demonstrate normal signal intensity on all sequences. No acute fracture is identified. The craniocervical junction is normal. The visualized portions of the skull base and the posterior fossa are normal. The spinal cord demonstrates normal signal intensity on all sequences. Intervertebral disks have normal height and signal intensity. There are no annular fissures identified. No soft tissue abnormality is identified. Normal signal voids are present in the vertebral arteries. C2-C3: The disk is normal in configuration. There is no facet arthropathy. There is no uncovertebral joint disease. There is no neuroforaminal stenosis. There is no spinal canal stenosis. C3-C4: Mild circumferential disc bulge. There is mild bilateral facet arthropathy. There is no uncovertebral joint disease. There is no neuroforaminal stenosis. There is no spinal canal stenosis. C4-C5: Circumferential disc bulge with posterior disc osteophyte complex There is bilateral mild facet arthropathy. There is bilateral mild uncovertebral joint disease. There is no neuroforaminal stenosis. There is mild spinal canal stenosis. C5-C6: Posterior disc osteophyte complex indenting the spinal cord . There is bilateral facet arthropathy. There is bilateral uncovertebral joint disease. There is mild bilateral neuroforaminal stenosis. There is moderate spinal canal stenosis. C6-C7: Right paracentral bulge impinging the right C7 nerve root in the lateral recess. There is mild bilateral facet arthropathy. There is bilateral uncovertebral joint disease. There is severe right neuroforaminal stenosis. There is moderate spinal canal stenosis. C7-T1: The disk is normal in configuration. There is no facet arthropathy. There is no uncovertebral joint disease. There is no neuroforaminal stenosis. There is no spinal canal stenosis. IMPRESSION: 1. Unchanged minor nonspecific T2/FLAIR hyperintensities in periventricular white matter without definite central vein sign. 2. Degenerative changes in the cervical spine with right paracentral bulge at C6-C7 level impinging the right C7 nerve root in the lateral recess and causing severe right neural foramen narrowing. Findings have not changed significantly when compared with the prior MRI. Dictated by: Lidia Taylor M.D. The radiology attending physician has personally reviewed this study, and had reviewed and/or edited this written report and agrees with it. Electronically signed by: Cathleen Moser M.D. us Erasto Bose MD IMG MRI PROCEDURES Final Resu lt * MRI Brain WO Contrast (01/15/2025 3:13 PM CDT) Anatomical Region Laterality Modality Head and Neck N/A Magnetic Resonan ce 01/15/2025 4:08 PM CDT Impressions 01/15/2025 4:35 PM CDT 1. Unchanged minor nonspecific T2/FLAIR hyperintensities in periventricular white matter without definite central vein sign. 2. Degenerative changes in the cervical spine with right paracentral bulge at C6-C7 level impinging the right C7 nerve root in the lateral recess and causing severe right neural foramen narrowing. Findings have not changed significantly when compared with the prior MRI. Dictated by: Lidia Taylor M.D. The radiology attending physician has personally reviewed this study, and had reviewed and/or edited this written report and agrees with it. Electronically signed by: Cathleen Moser M.D. Narrative 01/15/2025 4:35 PM CDT EXAMINATION: 1. Magnetic resonance imaging (MRI) of the brain and brainstem without contrast 2. Magnetic resonance imaging (MRI) of the cervical spine without contrast HISTORY: Follow-up of white matter lesions. TECHNIQUE: Multiplanar multi-weighted MRI of the brain and brainstem was performed without intravenous contrast using the general brain protocol. Multiplanar multi-weighted MRI of the cervical spine was performed without intravenous contrast using the standard protocol. COMPARISON: MRI brain 02/25/2023, MRI of the cervical spine 05/01/2022 FINDINGS: BRAIN: There are 4 tiny foci of FLAIR hyperintensity in right frontal, left parietal, left cingulate gyrus, right temporal white matter without interval change. Within the limitation of the small size, no central vein sign is identified. The scalp and calvarium are normal. The superior sagittal sinus demonstrates normal venous flow. The corpus callosum is normal in shape and signal intensity. The posterior fossa is unremarkable. The pituitary and sella are normal. The brainstem and craniocervical junction are unremarkable. Diffusion weighted images reveal no hyperintensities to suggest acute cerebral infarction. The susceptibility weighted sequences reveal no evidence of acute or chronic hemorrhage. The ventricles are normal in size and position without evidence of hydrocephalus. Maxillary sinus is hypoplastic with fluid opacity. The visualized portions of the mastoids are unremarkable. The orbits appear normal. Normal flow voids are demonstrated in the carotid arteries and basilar artery. CERVICAL SPINE: The alignment of the cervical spine is normal. Vertebral bodies demonstrate normal signal intensity on all sequences. No acute fracture is identified. The craniocervical junction is normal. The visualized portions of the skull base and the posterior fossa are normal. The spinal cord demonstrates normal signal intensity on all sequences. Intervertebral disks have normal height and signal intensity. There are no annular fissures identified. No soft tissue abnormality is identified. Normal signal voids are present in the vertebral arteries. C2-C3: The disk is normal in configuration. There is no facet arthropathy. There is no uncovertebral joint disease. There is no neuroforaminal stenosis. There is no spinal canal stenosis. C3-C4: Mild circumferential disc bulge. There is mild bilateral facet arthropathy. There is no uncovertebral joint disease. There is no neuroforaminal stenosis. There is no spinal canal stenosis. C4-C5: Circumferential disc bulge with posterior disc osteophyte complex There is bilateral mild facet arthropathy. There is bilateral mild uncovertebral joint disease. There is no neuroforaminal stenosis. There is mild spinal canal stenosis. C5-C6: Posterior disc osteophyte complex indenting the spinal cord . There is bilateral facet arthropathy. There is bilateral uncovertebral joint disease. There is mild bilateral neuroforaminal stenosis. There is moderate spinal canal stenosis. C6-C7: Right paracentral bulge impinging the right C7 nerve root in the lateral recess. There is mild bilateral facet arthropathy. There is bilateral uncovertebral joint disease. There is severe right neuroforaminal stenosis. There is moderate spinal canal stenosis. C7-T1: The disk is normal in configuration. There is no facet arthropathy. There is no uncovertebral joint disease. There is no neuroforaminal stenosis. There is no spinal canal stenosis. Procedure Note VoCathleen MD - 01/15/2025 EXAMINATION: 1. Magnetic resonance imaging (MRI) of the brain and brainstem without contrast 2. Magnetic resonance imaging (MRI) of the cervical spine without contrast HISTORY: Follow-up of white matter lesions. TECHNIQUE: Multiplanar multi-weighted MRI of the brain and brainstem was performed without intravenous contrast using the general brain protocol. Multiplanar multi-weighted MRI of the cervical spine was performed without intravenous contrast using the standard protocol. COMPARISON: MRI brain 02/25/2023, MRI of the cervical spine 05/01/2022 FINDINGS: BRAIN: There are 4 tiny foci of FLAIR hyperintensity in right frontal, left parietal, left cingulate gyrus, right temporal white matter without interval change. Within the limitation of the small size, no central vein sign is identified. The scalp and calvarium are normal. The superior sagittal sinus demonstrates normal venous flow. The corpus callosum is normal in shape and signal intensity. The posterior fossa is unremarkable. The pituitary and sella are normal. The brainstem and craniocervical junction are unremarkable. Diffusion weighted images reveal no hyperintensities to suggest acute cerebral infarction. The susceptibility weighted sequences reveal no evidence of acute or chronic hemorrhage. The ventricles are normal in size and position without evidence of hydrocephalus. Maxillary sinus is hypoplastic with fluid opacity. The visualized portions of the mastoids are unremarkable. The orbits appear normal. Normal flow voids are demonstrated in the carotid arteries and basilar artery. CERVICAL SPINE: The alignment of the cervical spine is normal. Vertebral bodies demonstrate normal signal intensity on all sequences. No acute fracture is identified. The craniocervical junction is normal. The visualized portions of the skull base and the posterior fossa are normal. The spinal cord demonstrates normal signal intensity on all sequences. Intervertebral disks have normal height and signal intensity. There are no annular fissures identified. No soft tissue abnormality is identified. Normal signal voids are present in the vertebral arteries. C2-C3: The disk is normal in configuration. There is no facet arthropathy. There is no uncovertebral joint disease. There is no neuroforaminal stenosis. There is no spinal canal stenosis. C3-C4: Mild circumferential disc bulge. There is mild bilateral facet arthropathy. There is no uncovertebral joint disease. There is no neuroforaminal stenosis. There is no spinal canal stenosis. C4-C5: Circumferential disc bulge with posterior disc osteophyte complex There is bilateral mild facet arthropathy. There is bilateral mild uncovertebral joint disease. There is no neuroforaminal stenosis. There is mild spinal canal stenosis. C5-C6: Posterior disc osteophyte complex indenting the spinal cord . There is bilateral facet arthropathy. There is bilateral uncovertebral joint disease. There is mild bilateral neuroforaminal stenosis. There is moderate spinal canal stenosis. C6-C7: Right paracentral bulge impinging the right C7 nerve root in the lateral recess. There is mild bilateral facet arthropathy. There is bilateral uncovertebral joint disease. There is severe right neuroforaminal stenosis. There is moderate spinal canal stenosis. C7-T1: The disk is normal in configuration. There is no facet arthropathy. There is no uncovertebral joint disease. There is no neuroforaminal stenosis. There is no spinal canal stenosis. IMPRESSION: 1. Unchanged minor nonspecific T2/FLAIR hyperintensities in periventricular white matter without definite central vein sign. 2. Degenerative changes in the cervical spine with right paracentral bulge at C6-C7 level impinging the right C7 nerve root in the lateral recess and causing severe right neural foramen narrowing. Findings have not changed significantly when compared with the prior MRI. Dictated by: Lidia Taylor M.D. The radiology attending physician has personally reviewed this study, and had reviewed and/or edited this written report and agrees with it. Electronically signed by: Cathleen Moser M.D. Erasto Bose MD IM MRI PROCEDURES Final Resu lt * Screening Mammogram Bilateral W Joshua (12/10/2024 10:49 AM CDT) Anatomical Region Laterality Modality Breast Bilateral Mammography Impressions 12/14/2024 5:20 PM CDT Bilateral No evidence of malignancy in either breast. OVERALL BI-RADS FINAL ASSESSMENT: 2 - Benign RECOMMENDATION: Recommend bilateral annual screening mammography. If supplemental screening is desired for heterogeneously dense breast tissue, consider breast MRI every 1-2 years. If breast MRI cannot be performed, contrast-enhanced mammography is an alternative. Narrative 12/14/2024 5:20 PM CDT EXAMINATION: Screening Mammogram Bilateral W Joshua: 12/10/2024 COMPARISON: Relevant prior studies available at the time of interpretation were reviewed, including the most recent mammogram on: 12/09/2023. TECHNIQUE: Mammography was performed with 2D and digital breast tomosynthesis (DBT) images. CAD was utilized. BREAST PARENCHYMAL COMPOSITION: The breasts are heterogeneously dense, which may obscure small masses. FINDINGS: Bilateral There is no suspicious mass, calcification, or architectural distortion in either breast. us Self Screening Mammogram IMG MAMMO PROCEDURES Fi nal Result * FLEXIBLE SIGMOIDOSCOPY (08/11/2018 9:56 AM CDT) Anatomical Region Laterality Modality Other Narrative Procedure Note Sukhjinder Liu MD - 08/11/2018 9:56 AM CDT ENDOSCOPY LAB Patient Name: Kaylen Guerrero Procedure Date: 08/11/2018 9:56 AM Date of : 1970 Admit Type: Inpatient Age: 48 Gender: Female Attending MD: Sukhjinder Liu MD Room: [facility] MAIN GI 01 Note Status: Finalized Procedure: Flexible Sigmoidoscopy Indications: Abdominal pain in the right lower quadrant. hx ofcolonic inertia s/p colectomy with ileossigmoid anastamosis. Providers: Sukhjinder Liu MD Referring MD: Medicines: Monitored Anesthesia Care Complications: No immediate complications. Estimated Blood Loss: Estimated blood loss was minimal. Procedure: Pre-Anesthesia Assessment: - Immediately prior to administration of medications,the patient was re-assessed for adequacy to receivesedatives. - Immediately prior to administration of medications,the patient was re-assessed for adequacy to receivesedatives. The benefits, risks, and alternatives to the procedureand sedation were discussed and informed consent wasobtained. The [id number] was introduced through the anusand advanced to the ileo-sigmoid anastomosis. The flexible sigmoidoscopy was accomplished without difficulty. The patient tolerated the procedure well. The quality ofthe bowel preparation was fair. Findings: The perianal and digital rectal examinations were normal. A continuous area of ulcerated mucosa with no stigmata of recent bleeding was present at the end to side ileosigmoid anastamosis( 27cm from anal verge). Biopsies were taken with a cold forceps forhistology. The upper scope was used for this procedure and passed easily through the anastomosis with resistance. The exam was otherwise without abnormality. The scope was advanced upto 70 cm. In the small bowel, which looked normal. Impression: - Mucosal ulceration at the end to side ileosigmoid anastamosis. Biopsied. - The examination was otherwise normal. Recommendation: - Use Benefiber two teaspoons PO daily. - Await pathology results. If negative for infectious etiology, consider mesalamine, topical and oral. Mayalso use Proctofoam - The ulcerated anastamosis with mild stenosis canexplain constipation, which is new for the patient. But the RLQ pain and tenderness is still severe despite no stool impaction., Consider CT abdomen with contrast. Attending Participation: I personally performed the entire procedure. Electronically signed by Sukhjinder Liu M.D. Sukhjinder Liu MD 08/11/2018 10:30:44 AM Number of Addenda: 0 Note Initiated On: 08/11/2018 9:56 AM us Sukhjinder Liu MD ENDOSCOPY PROCEDUR ES Final Result * Hepatitis panel, acute (11/18/2017 6:54 PM CDT) Hep A IgM Nonreactive Nonreactive [facility] Comment: Interpretive Data If test is reported as GRAYZONE, new sample should be drawn in two weeks for testing. Current interpretive data was last revised on 2016. Testing performed by: [facility], [address] [place] [address]., [id number] Hep B core IgM Nonreactive Nonreactive [facility] Comment: Interpretive Data If test is reported as GRAYZONE, new sample should be drawn for testing. Current interpretive data was last revised on 2016. Testing performed by: [facility], [address] [place]., [address] Hep C Ab Nonreactive Nonreactive [facility] Comment: Interpretive Data Positive and greyzone results should be confirmed by a molecular method. If positive or greyzone, a second separately collected sample should be submitted for Hepatitis C Virus RNA. Detection and Quantitation by Real-Time Reverse Frozen Meat Cutter-PCR.Current Interpretive data was last revised on 2016. Testing performed by: [facility], [address] [place] [address]., [id number] HepBsAg Nonreactive Nonreactive [facility] Comment:Testing performed by : [facility], [address] [place]., [address] Blood specimen (specimen) 11/18/2017 6:54 PM CDT 11/18/2017 8:31 PM CDT Narrative [facility] - 11/19/2017 11:11 AM CDT Rayray De Anda DO LAB MICROBIOLOGY - GENERAL ORDERABLES Edited Result - Final [facility] [address] [facility]. Department of Laboratories [place], [place] [id number] * COLONOSCOPY REPORT (08/27/2016) Anatomical Region Laterality Modality Other Narrative 08/27/2016 Ordered by an unspecified provider. Historical Provider GI PROCEDURE ORDERABLES F inal Result from Last 3 Months or Most Recently Relevant to Health Maintenance Insurance [email or web address] OPEN ACCESS [email or web address] OPEN ACCESS [employer] OPEN ACCESS [employer] OPEN ACCESS Advance Directives For more information, please contact: [phone] * Full Code (Latest Code Status on File) Date Activated Date Inactivated Comments 10/16/2022 8:17 AM 10/23/2022 4:20 PM * Full Code Date Activated Date Inactivated Comments 08/07/2018 3:27 AM 08/13/2018 7:34 PM Care Teams Pin Machine Tender Relationship Specialty Start Date End Date Jose Vazquez MD [address] [facility] [address] [place] [address] PCP - General Internal Medicine 06/23/24 [place] [address] [facility] [address] [place] [address] Consulting Physician Rheumatology 10/03/17 John Arellano MD [address] [facility] [address] [place] [address] Consulting Physician Pain Management 04/08/23
--- OUTSIDE RECORDS SUMMARY | 2025-01-31 19:55 | XMS_ITS | Encounter Summary ---
Author Organization [facility] Healthcare Address [address] [place] [address] Care Team Providers Care Box Lining Machine Feeder Name Role Phone Vickie Mendoza MD Unavailable John Arellano MD Unavailable Jose Vazquez MD Primary Care Provider Encounter Details Date Type Department Care Team (Latest Contact Info) Description 01/18/2025 Results Follow-Up [facility] [address] [facility] [address] [place] [address] Erasto Bose MD [address] [facility] [address] [place] [address] MRI Cervical Spine WO Contrast, MRI Brain WO Contrast Social History Tobacco Use Types Packs/Day Years [...] week 10/19/2022 How often do you attend [facility] or [facility] services? More than 4 times per year 10/19/2022 Do you belong to any clubs o r organizations such as adventist groups, unions, fraternal or athletic groups, or [...] place to sleep or slept in a senior living (including now)? No 10/19/2022 Personal Safety Answer Date Recorded Have you ever been in or are you currently in a harmful physical or emotional relationship or is someone making you feel afraid or unsafe? 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 Still having radiating pain and tingling down her right arm. Will proceed with physical therapy with cervical traction for cervical radiculopathy. Neurosurgical consultation would be the next step. She will contact me regarding the desired location for the physical therapy ordered to be sent. documented in this encounter Plan of Treatment Not on file documented as of this encounter Goals Goal Patient Goal Type Associated Problems Recent Progress Patient-Stated? Author CCM Chronic Pain Care Plan Chronic Care Management On track(2023 1:01 PM CDT) Yomaira Lozada RN Note: Problem: Chronic Pain Goals: 1. Minimize further functional decline 2. Maximize quality of life 3. Control pain Strategies: - Activity/exercise program recommendation - Conservative stepwise pain medicine strategy with multi-disciplinary approach - Recommend healthy lifestyle strategies and compensatory methods as needed documented as of this encounter Visit Diagnoses Not on filedocumented in this encounter Care Teams Box Lining Machine Feeder Relationship Specialty Start Date End Date Jose Vazquez MD [address] [place] [address] PCP - General Internal Medicine 06/23/24 [place] [address] [place] [address] Consulting Physician Rheumatology 10/03/17 John Arellano MD [address] [facility] [address] DEPT [place] [address] Consulting Physician Pain Management 04/08/23 documented as of this encounter
--- OUTSIDE RECORDS SUMMARY | 2025-01-31 19:55 | XMS_ITS | Clinical Summary ---
Author Organization [facility] Care Team Providers Care Rubber Roller Grinder Name Role Phone Unavailable Primary Care Provider Unavailabl e Social History Tobacco Use Types Packs/Day Years Used Date Smoking Tobacco: Never Assessed Comments Unknown Sex and Gender Information Value Date Recorded Sex Assigned at Not on file Legal Sex Female 9:12 PM CDT Gender Identity Not on file Sexual Orientation Not on file Plan of Treatment Not on file
--- OUTSIDE RECORDS SUMMARY | 2025-01-31 19:55 | XMS_ITS | Clinical Summary ---
Author Organization [facility] Address [address] [place] [id number] Phone Care Team Providers Care Grinder Hardboard Name Role Phone Unavailable Primary Care Provider Unavailabl e Allergies Active Allergy Reactions Criticality Noted Date Comments Gadolinium-Containing Contrast Media Anaphylaxis Medium 03/22/2018 Medications No known medications Active Problems Problem Noted Date Diagnosed Date Cervical radiculopathy 03/21/2018 Chest pain 03/21/2018 Arthralgia 03/21/2018 Allergy to intravenous contrast media, GADOLINIU M 03/21/2018 Anaphylactic reaction 03/21/2018 Family History Medical History Relation Name Comments Diabetes Father Hypertension Father Relation Name Status Comments Father Social History Tobacco Use Types Packs/Day Years Used Date Smoking Tobacco: Never Smokeless Tobacco: Never Alcohol Use Standard Drinks/Week Comments No 0 (1 standard drink = 0.6 oz pur e alcohol) Comments Unknown Sex and Gender Information Value Date Recorded Sex Assigned at Not on file Legal Sex Female 5:32 AM REVERSE UNIT OPERATOR Gender Identity Not on file Sexual Orientation Not on file Last Filed Vital Signs Vital Sign Reading Time Taken Comments Blood Pressure 110/68 03/22/2018 12:01 PM REVERSE UNIT OPERATOR Pulse 70 03/22/2018 12:01 PM REVERSE UNIT OPERATOR Temperature 37.1 C (98.7 F) 03/22/2018 12:01 PM REVERSE UNIT OPERATOR Respiratory Rate 16 03/22/2018 12:0 1 PM REVERSE UNIT OPERATOR Oxygen Saturation 99% 03/22/2018 12: 01 PM REVERSE UNIT OPERATOR Inhaled Oxygen Concentration - - Weight 67.5 kg (148 lb 12.8 oz) 03/21/2018 5:47 PM REVERSE UNIT OPERATOR Height 165.1 cm (5' 5) 03/21/2018 5:47 PM REVERSE UNIT OPERATOR Body Mass Index 24.76 03/21/2018 5:47 PM REVERSE UNIT OPERATOR Plan of Treatment Health Maintenance Due Date Last Done Comments HEPATITIS B VACCINES (1 of 3 - 19+ 3-dose series) 01/09/1988 FIT-DNA Q 3 years 2014 FIT/FOBT Q 1 year 2014 ZOSTER VACCINE (1 of 2) 2019 DTAP/TDAP/TD VACCINES (2 - T d or Tdap) 09/01/2022 09/01/2012 Flex Sig/CT Colonography Q 5 years 08/12/20232018 BREAST CANCER SCREENING 12/26/2023 12/26/19 23, 12/25/2022, 12/07/2021, Additional history exists INFLUENZA VACCINE (#1) 2024 COLORECTAL SCREENING 08/11/2028 08/11/2018 Colorectal Cancer Screening 08/11/2028 Insurance [employer] OPEN ACCESS [employer] [facility] Advance Directives For more information, please contact: [phone] * Full Code (Latest Code Status on File) Date Activated Date Inactivated Comments 03/21/2018 5:37 PM 03/22/2018 6:29 PM
[2025-01-31 19:56] VITALS: BP 141/83; PULSE 100; RESP 22; TEMP 36.8; O2SAT 100
[2025-01-31] MEDS: KETOROLAC (*BKC) 60 MG/2 ML VIAL IM (19:59)
[2025-01-31] MEDS: HYDROcodone/acetaminophen (*CRX) 5-325 MG TABLET 1 TAB PO (20:26)
[2025-01-31 20:37] VITALS: BP 120/76; PULSE 75; RESP 18; TEMP 36.6; O2SAT 100
== END 2025-01-31 20:37 | disposition home or self-care (01) ==
LOC: CHSED 20:11
PROVIDERS: Emergency Provider Emergency Medicine
DX: S93.491A Sprain of other ligament of right ankle, initial encounter (principal); X50.0XXA Overexertion from strenuous movement or load, initial encounter
CPT/HCPCS: 29515; 73610; 96372; 99283; A9270; J1885; L4350